=== PATIENT | female | born 1955 | race African-American/Black ===

== ENCOUNTER 2021-02-02 12:54 | Outpatient (RCR) | payer OTHER, SELFPAY ==
--- NOTE | 2021-02-02 14:07 | REHOPWC ---
SEATING EVALUATION NOTIFICATION This is to notify provider that Lluvia Cortes participated in a power mobility device evaluation today. Recommendations were made specific to patient's needs. Seating Assessment documentation has been completed for detailed information on required equipment. The mobility device provider for this case is Jamir from [facility]. Please note that no further care plan will be developed on this account. Thank you for referring this patient to [facility]. Please review, sign, date and return this discharge summary ROMANA. I have been updated about the patient's current status and I agree with discharge from the above service at this time. Referring Physician Date
== END 2021-02-03 08:53 | disposition home or self-care (01) ==
LOC: ANHPT 12:54
PROVIDERS: PCP Internal Medicine Infectious Disease; Visit Provider Internal Medicine Infectious Disease
DX: Z46.89 Encounter for fitting and adjustment of other specified devices (principal); Z74.09 Other reduced mobility
CPT/HCPCS: 97163